=== PATIENT | male | born 1970 | race American Indian/Alaskan Native ===

== ENCOUNTER 2024-06-07 09:56 | Inpatient (IN) | payer MEDICAID ==
[2024-06-07] MEDS ORDERED: Albuterol 6.7 GM Inhaler INH PRN (14:20)
[2024-06-07] MEDS ORDERED: Nitroglycerin 0.4 MG Tab.SL SL PRN (14:20)
[2024-06-07] MEDS: Meropenem 1 GM SDV IVPUSH ONE (14:55)
[2024-06-07 15:02] LABS: HEMATOCRIT 47.5 % (40.0-54.0); HEMOGLOBIN 15.8 g/dL (14.0-18.0); MEAN CORPUSCULAR HEMOGLOBIN 30.7 pg (27.0-34.0); MEAN CORPUSCULAR HGB CONC 33.3 g/dL (33.0-35.0); MEAN CORPUSCULAR VOLUME 92.4 fL (80-100); RED BLOOD CELL COUNT 5.14 10^6/uL (4.6-6.2); WHITE BLOOD CELL COUNT,WBC 7.3 10^3/uL (5.0-10.0)
[2024-06-07 15:13] LABS: ANION GAP 11.7 mEq/L (7-13); CALCIUM 9.2 mg/dL (8.5-10.1); CREATININE 1.02 mg/dL (0.70-1.30); EST CRCL DRUG DOSING (CG) 95.28 mL/min; POTASSIUM,K 4.7 mmol/L (3.5-5.1)
[2024-06-07] MEDS: Insulin Lispro 100 Units/ML 3 ML Vial SUBCUT SCH (17:36)
[2024-06-07] MEDS: Insulin Glarg,Human.Rec.Analog 100 Unit/ML 10 ML Vial SUBCUT SCH (22:00)
[2024-06-07] MEDS: Heparin Sodium 5,000 Units/ML Vial SUBCUT SCH (22:03)
[2024-06-07] MEDS: hydrOXYzine HCl 25 MG Tab PO SCH (22:06)
[2024-06-07] MEDS: Sodium Chloride 0.9% 10 ML Syringe FLUSH PRN (22:09)
[2024-06-07] MEDS: Meropenem 1 GM SDV IVPUSH SCH (22:10)
[2024-06-08] MEDS: Aspirin 81 MG Tab.EC PO SCH (08:53)
[2024-06-08] MEDS: Lisinopril 5 MG Tab PO SCH (08:53)
[2024-06-10] MEDS ORDERED: Glucagon,Human Recombinant 1 MG Vial IM PRN (17:58)
[2024-06-10] MEDS ORDERED: 50% Dextrose in Water 50 ML Syringe IVPUSH PRN (17:58)
[2024-06-10] MEDS: Insulin Lispro 100 Units/ML 3 ML Vial SUBCUT SCH (18:39)
[2024-06-11 07:15] LABS: BASOPHILS PERCENT AUTO 0.6 % (0.0-1.0); EOSINOPHILS PERCENT AUTO 9.9 % (1.0-3.0); HEMOGLOBIN 15.6 g/dL (14.0-18.0); LYMPHOCYTES PERCENT AUTO 25.5 % (20.5-50.1); MEAN CORPUSCULAR HEMOGLOBIN 30.8 pg (27.0-34.0); MEAN CORPUSCULAR HGB CONC 33.2 g/dL (33.0-35.0); MEAN CORPUSCULAR VOLUME 92.7 fL (80-100); MONOCYTES PERCENT AUTO 7.1 % (2-8); NEUTROPHILS PERCENT AUTO 56.9 % (42.2-75.2); PLATELET COUNT,PLT 282 10^3/uL (150-450); RED BLOOD CELL COUNT 5.07 10^6/uL (4.6-6.2); WHITE BLOOD CELL COUNT,WBC 6.8 10^3/uL (5.0-10.0)
[2024-06-11 07:34] LABS: ANION GAP 10.3 mEq/L (7-13); CREATININE 1.2 mg/dL (0.70-1.30); EST CRCL DRUG DOSING (CG) 80.99 mL/min; POTASSIUM,K 4.3 mmol/L (3.5-5.1)
[2024-06-12 06:29] LABS: BASOPHILS PERCENT AUTO 0.4 % (0.0-1.0); EOSINOPHILS PERCENT AUTO 8.8 % (1.0-3.0); HEMATOCRIT 46.9 % (40.0-54.0); HEMOGLOBIN 15.6 g/dL (14.0-18.0); LYMPHOCYTES PERCENT AUTO 25.8 % (20.5-50.1); MEAN CORPUSCULAR HEMOGLOBIN 31.1 pg (27.0-34.0); MEAN CORPUSCULAR HGB CONC 33.3 g/dL (33.0-35.0); MEAN CORPUSCULAR VOLUME 93.4 fL (80-100); MONOCYTES PERCENT AUTO 7.3 % (2-8); NEUTROPHILS PERCENT AUTO 57.7 % (42.2-75.2); PLATELET COUNT,PLT 251 10^3/uL (150-450); RED BLOOD CELL COUNT 5.02 10^6/uL (4.6-6.2)
[2024-06-12 06:43] LABS: ANION GAP 5.6 mEq/L (7-13); CREATININE 1.23 mg/dL (0.70-1.30); EST CRCL DRUG DOSING (CG) 79.02 mL/min; POTASSIUM,K 4.6 mmol/L (3.5-5.1)
[2024-06-13 06:22] LABS: BASOPHILS PERCENT AUTO 0.3 % (0.0-1.0); EOSINOPHILS PERCENT AUTO 9.6 % (1.0-3.0); HEMATOCRIT 45.7 % (40.0-54.0); HEMOGLOBIN 15.6 g/dL (14.0-18.0); LYMPHOCYTES PERCENT AUTO 25.1 % (20.5-50.1); MEAN CORPUSCULAR HEMOGLOBIN 31.5 pg (27.0-34.0); MEAN CORPUSCULAR HGB CONC 34.1 g/dL (33.0-35.0); MEAN CORPUSCULAR VOLUME 92.3 fL (80-100); MONOCYTES PERCENT AUTO 6.8 % (2-8); NEUTROPHILS PERCENT AUTO 58.2 % (42.2-75.2); PLATELET COUNT,PLT 267 10^3/uL (150-450); RED BLOOD CELL COUNT 4.95 10^6/uL (4.6-6.2); WHITE BLOOD CELL COUNT,WBC 7.5 10^3/uL (5.0-10.0)
[2024-06-13 06:40] LABS: ALBUMIN 2.7 g/dL (3.4-5.0); BILIRUBIN TOTAL 0.7 mg/dL (0.2-1.0); BUN/CREATININE RATIO 19.5 (No establ ref range); C-REACTIVE PROTEIN 0.59 ng/dL (<=0.50); CALCIUM 8.9 mg/dL (8.5-10.1); CREATININE 1.13 mg/dL (0.70-1.30); EST CRCL DRUG DOSING (CG) 83.93 mL/min; PROTEIN TOTAL,TP 7.6 g/dL (6.4-8.2)
[2024-06-13 06:42] LABS: A/G RATIO 0.55
[2024-06-13 07:22] LABS: SEDIMENTATION RATE MANUAL 18 mm/hr (0-15)
[2024-06-19] MEDS: Acetaminophen 325 MG Tab PO PRN (21:09)
[2024-06-20 17:47] VITALS: BP 132/76; PULSE 80
== END 2024-06-20 12:45 | disposition home or self-care (01) | DRG 603 ==
LOC: DL.MS 09:56
PROVIDERS: ADMIT Internal Medicine; ATTEND Internal Medicine
DX: L03.115 Cellulitis of right lower limb (principal); R53.81 Other malaise; E78.00 Pure hypercholesterolemia, unspecified; H54.7 Unspecified visual loss; I10 Essential (primary) hypertension; M19.90 Unspecified osteoarthritis, unspecified site; F90.9 Attention-deficit hyperactivity disorder, unspecified type; E11.9 Type 2 diabetes mellitus without complications; J45.909 Unspecified asthma, uncomplicated; Z86.69 Personal history of other diseases of the nervous system and sense organs; Z79.52 Long term (current) use of systemic steroids; Z90.49 Acquired absence of other specified parts of digestive tract; Z89.431 Acquired absence of right foot; Z79.899 Other long term (current) drug therapy; Z79.4 Long term (current) use of insulin; Z79.82 Long term (current) use of aspirin; Z95.9 Presence of cardiac and vascular implant and graft, unspecified; Z88.5 Allergy status to narcotic agent
CPT/HCPCS: 36415; 80048; 80053; 82947; 85025; 85027; 85651; 86140; 99211; 99306; 99309; 99316; A9270-GY; J1644; J1815-GY; J2185